=== PATIENT | female | born 1990 | race Two or more races ===

== ENCOUNTER 2024-10-19 17:56 | Emergency (ER) | payer OTHER ==
[~2024-10-19] VITALS: Ht 167.6 cm; Wt 72.0 kg
--- NOTE | 2024-10-19 18:53 | DVH ---
CLINICAL INDICATION: Crush injury TECHNIQUE: 3 radiographic views of the left hand were obtained. Comparison: None FINDINGS/IMPRESSION: Absence of the artificial nail on the left 3rd digit is noted. There are no bony fractures or dislocations.
--- NOTE | 2024-10-19 18:55 | DVH ---
CLINICAL INDICATION: Crush injury TECHNIQUE: 3 radiographic views of the left wrist were obtained. Comparison: None FINDINGS/IMPRESSION: Bony structures are in normal alignment. There are no fractures or dislocations. No radiopaque foreign bodies. HS:Y
--- NOTE | 2024-10-19 20:42 | ED.PDOC ---
Musculoskeletal HPI Comments 34 y/o F presents for c/c left hand pain and swelling. Patient endorses on injuring her left hand at work after hitting it against a wall, earlier, today. Pain is diffused and swelling is commented to be mild. No blood loss. No additional injuries or further acute symptoms endorsed. Vital signs were stable at arrival. Chief Complaint: Upper Extremity Time Seen by MD: 18:20 Reviewed Notes: Nurses Notes, Medications, Allergies Allergies: Coded Allergies: NO KNOWN ALLERGIES (Unverified , 10/19/24) Information Source: Patient Mode of Arrival: Ambulatory Location: Left Extremity Location: Hand Timing: Hours Prehospital treatment: None Severity: Moderate Able to Move Extremity: Yes Bear Weight: Limited Pain: Moderate Mechanism: Blunt Trauma Circumstances: Work Related Onset of Symptoms: After Trauma Symptoms: Swelling, Pain DVT Risk Factors: NONE Last Tetanus: UTD Associated signs and symptoms: None Past Medical History PAST MEDICAL HISTORY: Denies Surgical History: Denies all surgeries GUN STRIPER History: No Pertinent 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 History Family History Family History: Reviewed,noncontributory to illness, No family hx of Cancer, No family hx of DM, No family hx of Heart norma, No family hx of HTN, No family hx ofKidney norma, No family hx of Liver norma, No family hx of Lung norma, No family hx of Stroke Social History Smoker: Non-Smoker Alcohol: Denies ETOH Use Drugs: Denies Drug Use Lives In: Home Constitutional: denies: chills, diaphoresis, fatigue, fever, malaise, sweats, weakness, others EENTM: denies: blurred vision, double vision, ear bleeding, ear discharge, ear drainage, ear pain, ear ringing, eye pain, eye redness, hearing loss, mouth pain, mouth swelling, nasal discharge, nose bleeding, nose congestion, nose pain, photophobia, tearing, throat pain, throat swelling, voice changes, others Respiratory: denies: cough, hemoptysis, orthopnea, SOB at rest, shortness of breath, SOB with excertion, stridor, wheezing, others Cardiovascular: denies: chest pain, dizzy spells, diaphoresis, Dyspnea on exertion, edema, irregular heart beat, left arm pain, lightheadedness, palpitations, PND, syncope, others Gastrointestinal: denies: abdomen distended, abdominal pain, blood streaked bowels, constipated, diarrhea, dysphagia, difficulty swallowing, hematemesis, melena, nausea, poor appetite, poor fluid intake, rectal bleeding, rectal pain, vomiting, others Genitourinary: denies: abnormal vagina bleeding, burning, dyspareunia, dysuria, flank pain, frequency, hematuria, incontinence, pain, , vagina discharge, urgency, others Neurological: denies: dizziness, fainting, headache, left sided numbness, left sided weakness, numbness, paresthesia, pre-existing deficit, right sided numbness, right sided weakness, seizure, speech problems, tingling, tremors, weakness, others Musculoskeletal: reports: others (Left hand pain); denies: back pain, gout, joint pain, joint swelling, muscle pain, muscle stiffness, neck pain Integumetry: denies: bruises, change in color, change in hair/nails, dryness, laceration, lesions, lumps, rash, wounds, others Allergic/Immunocompromised: denies: Difficulty Healing, Frequent Infections, Hives, Itching, others Hematologic/Lymphatic: denies: anemia, blood clots, easy bleeding, easy bruisi ng, swollen glands, others Endocrine: denies: excessive hunger, excessive sweating, excessive thirst, exce ssive urination, flushing, intolerance to cold, intolerance to heat, unexplained weight gain, unexplained weight loss, others Psychiatric: denies: anxiety, bipolar disorder, depression, hopeless, panic disorder, schizophrenia, sleepless, suicidal, others All Other Systems: Reviewed and Negative (As per HPI) Physical Exam General Appearance: Mild Distress (Mild distress at time of evaluation.), Normal HEENT: Normal ENT Inspection, Pharynx Normal, TMs Normal Neck: Full Range of Motion, Non-Tender, Normal, Normal Inspection Respiratory: Chest Non-Tender, Lungs Clear, No Accessory Muscle Use, No Respiratory Distress, Normal Breath Sounds Cardiovascular: No Edema, No JVD, No Murmur, No Gallop, Normal Peripheral Pulses, Regular Rate/Rhythm Breast Exam: Deferred Gastrointestinal: No Organomegaly, Non Tender, No Pulsatile Mass, Normal Bowel Sounds, Soft Genitalia: Deferred Pelvic: Deferred Rectal: Deferred Extremities: Other (Left hand evaluation was relatively unremarkable. May be a small patch of edema noted to dorsal aspect. Moderate reduced range of motion. Distal neurovascularly intact.) Neurologic: Alert, No Motor Deficits, Normal Affect, Normal Mood, No Sensory Deficits Cerebellar Function: Normal Reflexes: Normal Skin: Dry, Normal Color, Warm Lymphatic: No Adenopathy Was a procedure done? Was a procedure done?: No Differential Diagnosis EXT Differential Diagnosis: Fracture, Sprain, Dislocation, Contusion, Strain, Other (Crush injury) X-Ray, Labs, Meds, VS Vital Signs Date Time Temp Pulse Resp B/P (MAP) Pulse Ox O2 Delivery O2 Flow Rate FiO2 10/19/24 17:57 97.5 73 16 113/70 97 97.5 [place] [id number] Ph: [phone] DIAGNOSTIC IMAGING Diagnostic Imaging Report : [id number] Signed PATIENT: ELIER GARAY ACCT: [id number] UNIT: [id number] : 1990 LOC: ER ROOM / BED: / AGE / SEX: 34 / F ADM STATUS: REG ER SERVICE 24 ORDERING PHYSICIAN: ASHUTOSH MORRIS PAC PROCEDURE(s): LWRI - L WRIST 3+ VIEW XRAY REASON: Crush injury ORDER NUMBER(s): [id number], ACCESSION NUMBER(s): [id number] CLINICAL INDICATION: Crush injury TECHNIQUE: 3 radiographic views of the left wrist were obtained. Comparison: None FINDINGS/IMPRESSION: Bony structures are in normal alignment. There are no fractures or dislocations. No radiopaque foreign bodies. HS:Y ATED BY: ANTOINE HURST Jr., DO DICTATED DATE/TIME: 10/19/241851 SIGNED BY: ANTOINE HURST Jr., SIGNED DATE/TIME: 10/19/241851 CC: [place] [id number] Ph: [phone] DIAGNOSTIC IMAGING Diagnostic Imaging Report : [id number] Signed PATIENT: ELIER GARAY ACCT: [id number] UNIT: [id number] : 1990 LOC: ER ROOM / BED: / AGE / SEX: 34 / F ADM STATUS: REG ER SERVICE 24 ORDERING PHYSICIAN: ASHUTOSH MORRIS PAC PROCEDURE(s): LHAN - L HAND 3V XRAY REASON: Crush injury ORDER NUMBER(s): [id number], ACCESSION NUMBER(s): [id number] CLINICAL INDICATION: Crush injury TECHNIQUE: 3 radiographic views of the left hand were obtained. Comparison: None FINDINGS/IMPRESSION: Absence of the artificial nail on the left 3rd digit is noted. There are no bony fractures or dislocations. ATED BY: ANTOINE HURST Jr., DO DICTATED DATE/TIME: 10/19/241850 SIGNED BY: ANTOINE HURST Jr., SIGNED DATE/TIME: 10/19/241850 CC: X-Ray, Labs, Meds, VS Comment All studies performed in the ED were evaluated by me personally. Imaging studies of the wrist and hand were unremarkable for any acute fractures. Patient sustained a hand contusion. Jerardo wrap applied. Pain medications as needed. Time of 1ST Reevaluation: 20:57 Reevaluation 1ST: Improved Consultation: PCP, Other (Patient may require a worker's comp evaluation if hand pain issues continue) Patient Education/Counseling: Diagnosis, Treatment, Need For Follow Up Family Education/Counseling: Diagnosis, Treatment, No Family Present Sepsis Recent Procedure: No On Antibiotic Therapy: No Respiratory Rate >20: No Heart Rate >90: No Temp<36 C (96.8 F) or >38.3 C: No SBP <90 or MAP <65 mmHG: No New Acute Mental Status Change: No Is the patient on CPAP, BIPAP,: No IV fluid given: No Departure 1 Departure Time of Disposition: 20:58 Impression: Primary Impression: Hand contusion Disposition: HOME / SELF CARE / HOMELESS Condition: Stable Additional Instructions: Advised pain medication as needed as well as ice therapy. If symptoms continue, patient will need to follow up with worker's comp for continued evaluation. e-Prescriptions Ibuprofen (Ibuprofen) 600 Mg Tab 1 TAB PO Q6HP PRN, #30 TAB Prov: ASHUTOSH MORRIS PAC 10/19/24 Discharged With: Self, Friend Critical Care Note Critical Care Time?: No Stability Stability form required: No Heart Score Heart Score: Heart Score Response (Comments) Value History N/A 0 EKG N/A 0 Age N/A 0 Risk Factors N/A 0 Troponin N/A 0 Total 0 I personally scribed for ASHUTOSH MORRIS PAC ([email or web address]) on 10/19/24 at 20:42. Electronically submitted by Loy Griffin ([email or web address]). ASHUTOSH MORRIS PAC Oct 19, 2024 20:42
[2024-10-19] MEDS ORDERED: IBUP-1454 PO (20:59)
[2024-10-19 22:20] VITALS: BP 112/83; PULSE 75; RESP 18; TEMP 97.7; O2SAT 97
== END 2024-10-19 22:28 | disposition home or self-care (01) ==
LOC: ER 17:56
DX: S60.222A Contusion of left hand, initial encounter (principal); W22.01XA Walked into wall, initial encounter; Y93.89 Activity, other specified; Y92.89 Other specified places as the place of occurrence of the external cause; Y99.8 Other external cause status
CPT/HCPCS: 73110; 73130